=== PATIENT | female | born 1975 | race Caucasian/White ===

== ENCOUNTER 2016-12-20 09:59 | Day surgery (SDC) | payer OTHER ==
[2016-12-16 12:04] VITALS: BMI 25.0
--- NOTE | 2016-12-20 11:47 | HP ---
Past Medical History - Primary Care Physician PCP:: Greyson West - Admission Chief Complaint: menometrorrhagia, EM polyp History of Present Illness: 41 yo f with hx of irregular heavy vaginal bleeding, sono showed EM polyp admitted for hysteroscopy, EM polypectomy. rba discussed History Source: Caregiver Limitations to Obtaining History: No Limitations - Past Surgical History Hx Myomectomy: No Hx Transabdominal Cerclage: No - Smoking History Smoking history: Former smoker Have you smoked in the past 12 months: No If you are a former smoker, when did you quit?: many years ago as per pt - Alcohol/Substance Use Hx Alcohol Use: No - Social History Usual Living Arrangement: Yes: With Spouse History of Recent Travel: No Home Medications - Allergies Allergies/Adverse Reactions: Allergies Allergy/AdvReac Type Severity Reaction Status Date / Time amoxicillin [Amoxicillin] Allergy Mild Rash Verified 12/20/16 10:47 - Home Medications Home Medications: Ambulatory Orders NK [No Known Home Medication] 12/16/16 Review of Systems - Review of Systems Constitutional: reports: No Symptoms Eyes: reports: No Symptoms HENT: reports: No Symptoms Neck: reports: No Symptoms Cardiovascular: reports: No Symptoms Respiratory: reports: No Symptoms Gastrointestinal: reports: No Symptoms Genitourinary: reports: Vaginal Bleeding Breasts: reports: No Symptoms Reported Musculoskeletal: reports: No Symptoms Integumentary: reports: No Symptoms Neurological: reports: No Symptoms Endocrine: reports: No Symptoms Hematology/Lymphatic: reports: No Symptoms Physical Exam-CAMPUS ADMINISTRATOR Vital Signs: Vital Signs Temperature 97.7 F 12/20/16 10:35 Pulse Rate 72 12/20/16 10:35 Respiratory Rate 18 12/20/16 10:35 Blood Pressure 108/61 12/20/16 10:35 O2 Sat by Pulse Oximetry (%) 98 12/20/16 10:36 Constitutional: Yes: Well Nourished, No Distress, Calm Eyes: Yes: WNL, Conjunctiva Clear, EOM Intact HENT: Yes: WNL, Atraumatic, Normocephalic Neck: Yes: WNL, Supple, Trachea Midline Cardiovascular: Yes: WNL, Regular Rate and Rhythm Respiratory: Yes: WNL, Regular, CTA Bilaterally Gastrointestinal: Yes: WNL ...Rectal Exam: Yes: WNL Renal/: Yes: WNL Vaginal Exam: Yes: Normal Cervix: Yes: Normal Uterus: Yes: Normal Adnexa: Not Palpable: Left, Right Breast(s): Yes: WNL Musculoskeletal: Yes: WNL Extremities: Yes: WNL Edema: No Integumentary: Yes: WNL Neurological: Yes: WNL, Alert, Oriented ...Motor Strength: WNL Psychiatric: Yes: WNL, Alert, Oriented Problem List - Problem (1) Menometrorrhagia Code(s): N92.1 - EXCESSIVE AND FREQUENT MENSTRUATION WITH IRREGULAR CYCLE (2) Endometrial polyp Code(s): N84.0 - POLYP OF CORPUS UTERI Assessment/Plan hysteroscopy D&C, risks of infection, bleeding , uterine scaring , anesthesia risks, post op complications discussed
[2016-12-20] MEDS ORDERED: MIDAZOLAM HCL 2 MG/2 ML SINGLE DOSE VIAL ONE (12:41)
[2016-12-20] MEDS ORDERED: PROPOFOL 20 ML ONE (12:55)
[2016-12-20] MEDS ORDERED: IBUPROFEN 800 MG/8 ML IJ IVPB PRN (13:08)
[2016-12-20] MEDS ORDERED: IBUPROFEN 600 MG TABLET (FP) PO PRN (13:08)
[2016-12-20] MEDS ORDERED: ONDANSETRON 4 MG/2 ML VIAL IVPB PRN (13:08)
[2016-12-20] MEDS ORDERED: oxyCODONE HCL 5 MG TABLET PO PRN (13:08)
[2016-12-20] MEDS ORDERED: ELECTROLYTE-148 SOLN 1,000 ML IV SCH (13:15)
[2016-12-20] MEDS ORDERED: PROMETHAZINE HCL 25 MG/1 ML VIAL IVPUSH PRN (15:02)
[2016-12-20] MEDS ORDERED: LACTATED RINGERS SOLUTION 1,000 ML IV SCH (15:15)
[2016-12-20 15:18] VITALS: TEMP 98.1
--- NOTE | 2016-12-20 16:04 | OP ---
DATE OF OPERATION: 12/20/2016 PREOPERATIVE DIAGNOSES: Menorrhagia, endometrial polyp, fibroid uterus. POSTOPERATIVE DIAGNOSES: Menorrhagia, endometrial polyp, fibroid uterus. PROCEDURE: Hysteroscopy, dilatation and curettage, and endometrial polypectomy. SURGEON: Greyson West MD ANESTHESIA: General. ESTIMATED BLOOD LOSS: 50 mL DESCRIPTION OF PROCEDURE: Patient was taken to the operating room, and adequate general anesthesia induced. In dorsal lithotomy position, examination under anesthesia revealed external genitalia to be normal. Vagina was normal. Cervix was clean, no lesion. Uterus was enlarged and irregular. Small myoma felt. Adnexa: No masses palpable. Then, with a weighted speculum in the vagina, anterior lip of the cervix was grasped with a single-tooth tenaculum. Cervix was slightly dilated. Uterine cavity was sounded to 8 cm. Then, hysteroscope was introduced. Visualization of endocervical canal appeared to be normal. There was a large polyp approximately 4 cm seen at the fundal area of the uterus. Endometrium appeared to be irregular. No submucous myoma seen. Both cornual regions were identified, and they were normal. No other abnormalities seen. Then, hysteroscope was withdrawn. Cervix was gradually dilated with Hegar dilators, and then, endometrial polyp was removed in its entirety. Then, D&C was done, and then, hysteroscope was reintroduced. No more polyps were seen. The patient tolerated the procedure well, left the OR in good condition. Leonarda [id number]
[2016-12-20 16:23] VITALS: BP 106/64; PULSE 64
--- NOTE | 2016-12-21 12:09 | PATH ---
Surgical Pathology Report Patient Name: CECILIA JENSEN [facility]. Rec. #: [id number] /Age/Gender: 1975 (Age: 41) / F Account: [id number] Location: [facility] Taken: 12/20/2016 Received: 12/20/2016 Reported: 12/21/2016 Physicians: Greyson West M.D. Specimen(s) Received A: ENDOMETRIAL CURETTINGS B: ENDOMETRIAL POLYP Clinical History Endometrial polyp, irregular menses Final Diagnosis A. ENDOMETRIUM, CURETTAGE: FRAGMENTS OF ENDOMETRIAL POLYP. BACKGROUND FRAGMENTS OF PROLIFERATIVE AND DISORDERED PROLIFERATIVE ENDOMETRIUM. FRAGMENTS OF BENIGN ENDOCERVICAL TISSUE. FRAGMENTS OF BENIGN SQUAMOUS EPITHELIUM. B. ENDOMETRIAL POLYP, POLYPECTOMY: CONSISTENT WITH ENDOMETRIAL POLYP. Electronically Signed Cheko Zhao M.D. Gross Description A. Received in formalin labeled "endometrial curettings" is a 4.0 x 4.0 x 0.3 cm aggregate of reyes red soft tissue fragments. The formalin is filtered and the specimen is entirely submitted in 3 cassettes. B. Received in formalin labeled "endometrial polyp" is a 2.5 x 2.3 x 0.5 cm aggregate of pink-reyes, irregular to polypoid portions of soft tissue. The specimen is entirely submitted in 2 cassettes. 12/20/201612/20/2016
== END 2016-12-20 16:25 | disposition home or self-care (01) ==
LOC: JASU-SURG 09:59
PROVIDERS: ATTEND Obstetrics & Gynecology
PROC: 0UB98ZX Excision of Uterus, Via Natural or Artificial Opening Endoscopic, Diagnostic (ICD-10-PCS; principal; 2016-12-20 11:30)
PROC: 0UDB8ZX Extraction of Endometrium, Via Natural or Artificial Opening Endoscopic, Diagnostic (ICD-10-PCS; 2016-12-20 11:30)
DX: N92.0 Excessive and frequent menstruation with regular cycle (principal); D25.9 Leiomyoma of uterus, unspecified; N84.0 Polyp of corpus uteri
CPT/HCPCS: 84703; 88305-TC; 94760